=== PATIENT | male | born 2005 | race Two or more races ===

== ENCOUNTER 2024-01-05 02:24 | Emergency (ER) | payer BC ==
[2024-01-05] MEDS ORDERED: Acetaminophen 500 MG TAB ONE (02:39)
[2024-01-05] MEDS ORDERED: Ibuprofen 800 MG TAB ONE (02:40)
== END 2024-01-05 03:24 | disposition home or self-care (01) ==
LOC: ERS 02:24
DX: R52 Pain, unspecified (principal)
CPT/HCPCS: 87428; 99283